=== PATIENT | female | born 1960 | race Caucasian/White ===

== ENCOUNTER 2016-03-18 03:08 | Inpatient (IN) | payer OTHER ==
[~2016-03-18] VITALS: Ht 160 cm; Wt 112.5 kg
[~2016-03-18 03:08] MED LIST: CYMBALTA30 M1 PO; GABAPENTIN300 M2 PO; METHOCARBAMOL500 M1 PO; PREMARIN0.625 M1 PO
--- NOTE | 2016-03-18 09:49 | RADIOLOGY REPORT ---
EXAMINATION: XR LUMBAR SPINE CLINICAL INFORMATION: Intraoperative lateral x-ray for needle placement. COMPARISON: 04/18/2015 MRI. TECHNIQUE: Single intraoperative lateral x-ray of the lumbar spine FINDINGS: There is a needle in the posterior soft tissues of the lumbar spine at the L4 mid vertebral body. Otherwise unremarkable. IMPRESSION: Posterior soft tissue needle located at L4.
--- NOTE | 2016-03-18 10:53 | RADIOLOGY REPORT ---
EXAMINATION: XR LUMBAR SPINE CLINICAL INFORMATION: L4-L5 and L5-S1 fusion in OR. COMPARISON: Lumbar spine film from earlier today. TECHNIQUE: Single lateral view of the lumbar spine labeled #2. FINDINGS: The vertebral bodies and posterior elements are normal in alignment. Surgical marker is seen at the posterior L4-L5 facet joint. Tissue retractors are seen posteriorly in the lower back. IMPRESSION: Localization of the posterior L4-L5 facet joint.
--- NOTE | 2016-03-18 12:54 | Operative Report ---
Operative/Inv Procedure Report Surgery Date: 03/18/16 Name of Procedure: L45, L5-S1 laminectomy for resection synovial cysts, L4 5 bilateral osteotomies, L5-S1 bilateral osteotomies. L4 5 TLIF, L5-S1 TLIF, insertion of L4 5 12 x 28 mm titanium interbody cage, insertion of a 7 x 24 mm interbody cage at L5-S1. Posterior lateral segmental instrumentation L4 through S1 by Aristeo titanium. L4-L5 L5-S1 posterior lateral arthrodesis utilizing autologous bone graft and iliac crest graft aspirate. Procedure performed stereotactically. Pre-Operative Diagnosis: Lumbar spondylosis lumbar spondylolisthesis lumbar stenosis. Post-Operative Diagnosis: Same Estimated Blood Loss: 500cc Surgeon/Box Car Checker: KOBI BRUNO MD and MONSERRAT OSULLIVAN,ALIYAH Salazar Anesthesia: general endotracheal tube Operative/Procedure Note Note: Patient was brought into the operating room and after undergoing endotracheal intubation Lal catheterization Venodyne's were placed over both lower extremities. Patient was placed in the prone position, back was kept flat all bony prominences were well-padded on a Jayjay frame. The back was washed with alcohol and Betadine reprepped again with DuraPrep solution and draped in usual sterile fashion. X-ray was used for localization. An incision was made in the midline approximately 5 inches in length and the L4 vertebra on the S1 and developed down through the underlying subcutaneous tissues. The paraspinal muscles were mobilized out laterally to the level of the transverse process, exposing the L4-L5 transverse process and the ala of the ilium. X-ray was used for confirmation. At this point working with a Misonix bone scalpel. A laminectomy was performed at L4 5 and L5-S1 exposing an underlying synovial cyst which was away and removed away from the dura. Sent off for pathology. Following this resection bilateral osteotomies was now performed with a bone scalpel, coming across the pars on both sides exposing the foramina completely bilaterally. As the nerve roots bilaterally at L4-L5 and S1 were completely freed. Having accomplished this with an 11 blade the disc space was entered at the L4 5 and removed a combination of shaver and curved rongeurs and straight and curved curettes. The cartilaginous endplates were removed and the bony endplates were partially decorticated. The bone that was removed and the patient's back was morcellized and now used for the arthrodesis. Furthermore it was mixed with iliac crest aspirate aspirate which was obtained via a separate skin incision over the iliac crest. After packing the interspace at the L4 5 with autologous bone graft morcellized, a 12 x 28 mm tritanium cage by Aristeo, was now tapped across the midline into the interspace and countersunk. Copious amounts of irrigation were used and now attention was turned to the L5-S1 space. An 11 blade was used to enter the disc space and the space was removed combination of straight and curved rongeurs and straight and curved curettes. This was felt found to be highly collapsed, and the distraction would yield only a subsidence into the vertebra. Because of this point a the disc space was packed with morcellized autologous bone graft and a 7 x 24 mm titanium cage was used to place it into the interspace. At this point point, the posterolateral spine was retracted the transverse processes were decorticated as well as the ileum, and morselized bone was packed between L4 and S1. The stereotactic coordinates were now obtained utilizing the O arm. [place] titanium pedicle screws were now placed at L4 and L5 6.5 mm x 40 mm, and then bilateral screws at S1 35 mm in length 6.5 in width. The screws were titanium. At this point copious amounts of irrigation were used and the screws were stimulated and found to stimulate above 30 mA. 2 rods were used and secured to the polyaxial screws under compression. A large round JUAN JOSÉ was placed and removed a separate stab incision superiorly. Vancomycin powder was brought into the wound . The paraspinal muscles and fascia were reapproximated with interrupted 0 Vicryls. Inverted 2-0 Vicryl subcutaneous teeniest tissues and zack for the skin. The patient was taken extubated to recovery room in entire procedure well.
--- NOTE | 2016-03-18 13:23 | Operative Report ---
Operative/Inv Procedure Report Surgery Date: 03/18/16 Name of Procedure: 1. Bilateral L4, L5 pars osteotomies for deformity correction 2. Total L4, L5 laminectomy, bilateral L4 5, L5-S1 facetectomies 3. Left L4 5, L5-S1 far lateral discectomies 4. L4 5, L5-S1 transforaminal lumbar interbody fusion with titanium interbody cage, autograft 5. Segmental posterior lateral arthrodesis L4-S1 with Aristeo pedicle screws and rods, autograft, iliac crest bone marrow aspirate 6. Use of O arm navigation 7. Resection of L4 5 synovial cyst 8. Right posterior iliac crest bone marrow aspirate Pre-Operative Diagnosis: 1. Dynamic L4 5 spondylolisthesis with stenosis 2. Advanced L5-S1 degenerative disc disease, spondylosis, and severe foraminal stenosis with nerve root impingement Post-Operative Diagnosis: Same Estimated Blood Loss: 500cc Surgeon/Blanket Winder Operator: MONSERRAT OSULLIVAN,Campbell Guzman M.D. Anesthesia: general endotracheal tube Monitors: Neurophysiologic monitoring IV Fluids: 3L crystalloid, 420 mL Cell Saver Implants: [place] Mandi 3 pedicle screws and rods, titanium cage 2 Urine Output: 220 cc Drains: Medium JUAN JOSÉ Specimens: L4 5, L5-S1 disc material Complications: None Condition: Stable Operative Indication: Patient is a 55-year-old woman who presents with intractable left lumbar radiculopathy despite a prolonged course of conservative care. Imaging study identifies advanced facet arthrosis at L4 5 bilaterally with the facet joint cysts, hypertrophic changes, and a dynamic spondylolisthesis resulting in a severe concentric canal stenosis with neural impingement. She is also noted to have advanced L5-S1 degenerative disc disease with severe disc collapse, spondylosis, and severe bilateral foraminal stenosis with impingement of the L5 roots. In light of her failure to respond to nonoperative treatment, she now presents for surgical decompression and instrumented stabilization. Operative/Procedure Note Note: Patient was taken to the operating room. After appropriate patient identification and surgical timeout, the patient underwent the smooth induction of general endotracheal anesthesia without incident. A Lal catheter was sterilely inserted. Neurophysiologic monitoring leads were placed and baseline recordings were obtained. Patient was given 2 g of IV Preoperative Prophylaxis. DVT Prophylaxis Was Utilized throughout the Case. All Tubes and Lines Secured, the Patient Was Carefully turned to the prone position on the Jayjay table taking care to ensure that all pressure points were well-padded. Lumbar region low back was widely prepped and draped using povidone iodine solution. A vertical midline skin incision was marked and infiltrated with local anesthetic from L4 to S1. A small gauge spinal needle was placed superficially and a localizing x-ray was obtained to confirm the level of the planned incision. Skin incision was made with a 10 blade knife. Dissection was carried down through subcutaneous tissue with the Bovie to the lumbodorsal fascia. Fascia was incised in midline and a subperiosteal dissection of the lumbar paravertebral muscles performed bilaterally exposing spinous process, lamina, and facet joints. The joints of L4 5 were noted to be massively hypertrophic bilaterally. A [place] was placed on the presumed L4 lamina and intraoperative x- ray was obtained and confirmed the correct levels. The transverse processes of L4-L5 and the sacral alar were cleared of overlying soft tissue bilaterally and decorticated with a high-speed drill. With the levels confirmed, we then proceeded with a total laminectomy of L4-L5 to the top of the sacrum. Bilateral pars osteotomies of L4 and L5 were performed bilaterally using a combination of the bone scalpel and Kerrison rongeurs. Total facetectomies at L4 5 and L5-S1 were completed bilaterally. Patient was noted to have synovial cysts associated with her L4 5 facet joints which were resected carefully and passed off as specimen. All bone was saved for subsequent arthrodesis. The pedicles of L4, L5, and S1 were skeletonized bilaterally. A thickened underlying ligamentum flavum was gently elevated and sequentially resected with the Kerrison rongeurs allowing an excellent decompression of the underlying thecal sac as well as the exiting and traversing roots from L4 to S1. We then proceeded to the interbody decompression and arthrodesis. The thecal sac was gently protected under a [place] hand-held retractor. Working from the patient's more symptomatic left side and beginning at L4 5, a cuff of venous epidural tissue overlying the disc annulus was coagulated with a bipolar and divided with a micro-scissor. The annulus was coagulated with the bipolar and an annulotomy performed with an 11 blade knife. Discectomy was completed with the disc space jj and rasps until all of the cartilaginous endplates were removed. With the disc space appropriately prepared, it was irrigated. After appropriate trials, a 12 x 28 x 11 x 6 lordotic titanium cage was selected. Morcellated autograft from the decompression was packed into the anterior L4 5 disc space. The cage was then gently tamped into the interspace under direct visualization and countersunk by several millimeters and its final position visually confirmed and noted to be excellent. Monitoring was stable. We next focused our attention to L5-S1. In an analogous fashion, and with the neural elements protected, a annulotomy was performed on the left and discectomy completed with disc space jj and rasps until all the disc material and cartilaginous endplate was removed. After appropriate trials, a 7 x 23 x 11 x 6 significantly collapsed at this level. Morcellated autograft was packed into the anterior L5-S1 disc space followed by the cage which was gently tamped into the interspace under direct visualization and countersunk. With the cages in position, we then proceeded to the posterior lateral arthrodesis. 15 mL of right posterior iliac crest bone marrow aspirate was harvested a with a Jamshidi needle and added to the morcellated autograft. The bone was then packed over the transverse processes from L4 to the sacral alar bilaterally. With the bone in position, the O arm reference arc was then placed into the right posterior iliac crest. The O arm was brought into play. Reference AP and lateral x-rays were obtained followed by a spin of the O arm. sagittal and coronal reconstructions were obtained and the acquisition was confirmed. Using O arm navigation, entry points for pedicle screws at L4, L5, S1 was selected bilaterally at the junction of the pars, transverse process, and inferomedial aspect of the rostral facet. Entry points were marked with the drill. Pedicles were traversed with a gearshift. Holes were sounded, tapped, sounded again and screws placed under direct and O arm navigation. At L4 and L5 , 6.5 x 40 mm Aristeo Mandi 3 pedicle screws were placed bilaterally. At S1, 6.5 x 35 mm pedicle screws were placed bilaterally without complication. Once all screws were in place, they were stimulated with thresholds greater than 30 mA at all locations. With the instrumentation in place, a second spin of the O arm was undertaken and we confirmed excellent position of all of our hardware. 60 mm rods were then top loaded and locking caps placed bilaterally. The screws were finally tightened with an antitorque device at all 6 locations. The wound was copiously irrigated with sterile normal saline. Meticulous hemostasis is achieved using combination of bipolar and of thrombin-soaked Gelfoam patties and the epidural space. Using a [place], we confirmed the wide decompression of the L4 5 and L5-S1 neural foramen bilaterally and excellent decompression of the exiting roots. The central canal was quite coryza completely decompressed and the dural sac well-expanded. 1 g of IV vancomycin powder was used to coat all of the cut across surfaces. 20 mL of long-acting local was instilled in the paravertebral muscle for postoperative analgesia and we began wound closure. A medium JUAN JOSÉ drain was placed into the wound and secured to the skin with a 2-0 nylon suture. Deep muscle was reapproximated with interrupted 0 Vicryl suture. Lumbodorsal fascia was reapproximated with interrupted 0 Vicryl suture. Superficial wound was copiously irrigated and closed in layers with interrupted 20 and 3-0 Vicryl suture and the skin was closed with zack. The wounds clean and dried. Bacitracin and a sterile occlusive dressing was placed. The small stab incision of the right posterior hip was also closed with interrupted 3-0 Vicryl suture in the dermis and zack. A sterile small dressing was placed. The patient was then carefully returned to the supine position, awakened extubated and taken to PACU in stable condition. She was noted to be moving all 4 extremities at the completion of the case. All sponge, needle, and instrument counts were correct at the completion of the procedure 3. Neurophysiologic monitoring was stable throughout the case.
[2016-03-18 15:00] VITALS: BP 110/68
--- NOTE | 2016-03-18 15:28 | PN- Neurosurgical ---
Subjective Subjective: Post Op Note s/p lumbar laminectomy Patient without c/o. States she has no pain at the moment. She had left leg numbness/parasthesia pre op but none at the moment. Denies n/v Denies CP/SOB. Objective Vital Signs and I&Os AVSS Physical Exam: Gen: NAD, comfortable, A&Ox3 Chest: NRD, breathing comfortably on RA. RRR. Back: Dressing c/d/i. JUAN JOSÉ drain with sanguinous drainage Ext: No calve TTP/Swelling. N/V intact BLE. Current Medications: Current Medications Sig/Armani Start time Last Medication Dose Route Stop Time Status Admin Acetaminophen 650 MG Q4P PRN 03/18 1415 AC PO Acetaminophen 1,000 MG .STK-MED ONE 03/18 717 DC IV 03/18 07 Bisacodyl 10 MG DAILY NEEDED PRN 03/18 141 AC GA Dexamethasone 8 MG .STK-MED ONE 03/18 07 DC IM 03/18 0720 Diazepam 5 MG Q8P PRN 03/18 1415 AC PO Docusate Sodium 100 MG TID 03/18 1600 AC PO Duloxetine HCl 30 MG QPM 03/18 2200 UNVr PO Estrogens Conjugated 0.625 MG QPM 03/18 2200 UNVr PO Fentanyl Citrate 500 MCG .STK-MED ONE 03/18 717 DC IM 03/18 07 Heparin Sodium 5,000 UNIT Q8 03/19 0600 AC (Porcine) SC Hydromorphone HCl 2 MG Q4-6 PRN PRN 03/18 1430 AC PO Hydromorphone HCl 1 MG Q4-6 PRN PRN 03/18 1430 AC IV Hydromorphone HCl 2 MG Q4-6 PRN PRN 03/18 1430 AC IV Hydromorphone HCl 50 MG Q24H PRN 03/18 1330 AC Sodium Chloride 45 ML IV Ketorolac 30 MG Q6P PRN 03/18 1415 AC Tromethamine IV 03/23 1414 Midazolam HCl 2 MG .STK-MED ONE 03/18 07 DC IM 03/18 0719 Ondansetron HCl 4 MG Q6P PRN 03/18 1415 AC IV Oxycodone/ 2 TAB Q4P PRN 03/18 1415 AC Acetaminophen PO Remifentanil 5 MG .STK-MED ONE 03/18 0718 DC IV 03/18 0719 Senna 374 MG QPM PRN 03/18 1415 AC PO Sodium Chloride 1,000 ML Q10H 03/18 1415 AC IV 03/19 1014 Trimethobenzamide HCl 200 MG Q6P PRN 03/18 1415 AC IM Zolpidem Tartrate 2.5 MG AT BEDTIME NEED.. 03/18 1430 AC PO Assessment/Plan Assessment/Plan 55yo F POD#1 s/p lum chaudhry. Patient doing well post operatively. - Pain control with d-last picker - continue IVF. DC once tolerating diet - OOB with brace - I/O's - PRN zofran - JUAN JOSÉ drain to bulb suction - abx while JUAN JOSÉ in place - home meds - alps - sc hep in am Core Measures/Miscellaneous Venous Thromboembolism VTE Risk Factors: Age > 40, Surgery VTE Contraindications: Active Bleeding VTE Prophylaxis Ordered Inpt: Mechanical (ALPS/TEDS) VTE Diagnosis: No Beta Brii Is Beta Brii a Home Med? No Antibiotics Is Patient on Antibiotics? Yes If Yes: prophylaxis
--- NOTE | 2016-03-18 17:12 | RADIOLOGY REPORT ---
EXAMINATION: XR LUMBOSACRAL SPINE CLINICAL INFORMATION: L4-L5 and L5-S1 fusion in OR. COMPARISON: Lumbar spine films from earlier today. TECHNIQUE: Fluoroscopic equipment was dedicated to the operating room for the performance of a lower lumbar spine fusion. A few coned-down frontal views of the lumbosacral junction were obtained and CT images of the lower lumbar spine were performed. FLUOROSCOPY TIME: 10.27 seconds. FINDINGS: Images demonstrate laminectomy and fusion of the L4-L5 and L5-S1 levels with transpedicular screws and intervertebral disc spacers seen in place. Alignment on the images available appears anatomic. IMPRESSION: L4-L5 and L5-S1 decompression and fusion.
[2016-03-18 18:35] VITALS: BP 142/82
[2016-03-18 20:33] VITALS: BP 120/70
[2016-03-19] VITALS (7 sets, daily range): BP systolic 110–147; BP diastolic 52–82
--- NOTE | 2016-03-19 07:49 | PN- Neurosurgical ---
Subjective Subjective: Pt doing well. Reports mild tingling bilat LE to feet. No other complaints. Objective Vital Signs and I&Os Vital Signs Date Time Temp Pulse Resp B/P Pulse O2 O2 Flow FiO2 Ox Delivery Rate 03/19 0313 97.8 89 20 134/70 95 Room Air 03/19 0002 98.1 83 20 110/66 90 Room Air 03/18 2033 98.4 111 20 120/70 93 03/18 1922 Room Air Room Air 03/18 1835 97.9 103 20 142/82 96 03/18 1500 98.6 88 18 110/68 97 Room Air Room Air Intake & Output 03/19 0800 03/19 0000 03/18 1600 03/18 0803/18 0000 03/17 1600 Intake Total 1250 1805 125 Output Total 1900 500 70 Balance -650 1305 55 Intake, IV 800 875 125 Intake, Oral 450 930 Number 0 Bowel Movements Output, 100 150 70 Drainage Output, Urine 1800 350 Patient 112.491 kg Weight Physical Exam: AF, VSS awake and alert neuro exam with normal strength and sensation bilat LE ambulating on own to BR this am bailey out and voiding on own mary lou po no LE edema, abd soft incision is c,d,i drain in place Current Medications: Current Medications Sig/Armani Start time Last Medication Dose Route Stop Time Status Admin Acetaminophen 650 MG Q4P PRN 03/18 1415 AC PO Bisacodyl 10 MG DAILY NEEDED PRN 03/18 1415 AC MO Diazepam 5 MG Q8P PRN 03/18 1415 AC PO Docusate Sodium 100 MG TID 03/18 1600 AC 03/18 PO 213 Duloxetine HCl 30 MG QPM 03/18 2200 AC 03/18 PO 2133 Estrogens Conjugated 0.625 MG QPM 03/18 2200 AC 03/18 PO 2133 Heparin Sodium 5,000 UNIT Q8 03/19 0600 AC 03/19 (Porcine) SC 0553 Hydromorphone HCl 2 MG Q4-6 PRN PRN 03/18 1430 AC PO Hydromorphone HCl 1 MG Q4-6 PRN PRN 03/18 1430 AC IV Hydromorphone HCl 2 MG Q4-6 PRN PRN 03/18 1430 AC IV Hydromorphone HCl 50 MG Q24H PRN 03/18 1330 AC Sodium Chloride 45 ML IV Ketorolac 30 MG Q6P PRN 03/18 1415 AC Tromethamine IV 03/23 1414 Ondansetron HCl 4 MG Q6P PRN 03/18 1415 AC 03/18 IV 2133 Oxycodone/ 2 TAB Q4P PRN 03/18 1415 AC Acetaminophen PO Senna 374 MG QPM PRN 03/18 1415 AC PO Sodium Chloride 1,000 ML Q10H 03/18 1415 AC 03/18 IV 03/19 1014 1450 Trimethobenzamide HCl 200 MG Q6P PRN 03/18 1415 AC IM Zolpidem Tartrate 2.5 MG AT BEDTIME NEED.. 03/18 1430 AC PO Assessment/Plan Assessment/Plan Pt POD1 s/p L4-S1 decompression and fusion and doing well. Plan: -cont JUAN JOSÉ until less than 50cc per shift, abx until drain out -OOB with brace -ADAT -dc DEPUTY REGISTER OF DEEDS, oral meds + toradol prn -DVT prophylaxis with subq hep today -encourage IS use Core Measures/Miscellaneous Venous Thromboembolism VTE Risk Factors: Age > 40, Surgery VTE Contraindications: Active Bleeding VTE Prophylaxis Ordered Inpt: Mechanical (ALPS/TEDS) VTE Diagnosis: No Beta Brii Is Beta Brii a Home Med? No Antibiotics Is Patient on Antibiotics? Yes If Yes: prophylaxis Attending MD Review Statement Attending Statement Attending MD Statement: examined this patient, discuss w/resident/PA/DREDGE ENGINEER, discussed w/nursing
[2016-03-19 08:17] LABS: ABSOLUTE BASOPHIL COUNT 0 /CUMM (0.0-0.2); ABSOLUTE EOSINOPHIL COUNT 0 /CUMM (0.0-0.7); ABSOLUTE GRANULOCYTE CT 9.3 /CUMM (1.4-6.5); ABSOLUTE LYMPH COUNT 1.4 /CUMM (1.2-3.4); ABSOLUTE MONOCYTE COUNT 0.9 /CUMM (0.10-0.60); BASOPHIL % 0.2 % (0.0-2.0); EOSINOPHIL % 0.1 % (0-5); GRANULOCYTE % 79.9 % (42.2-75.2); HEMATOCRIT 33.5 % (37-47); MEAN CORPUSCULAR HGB 30.6 PG (27.0-31.0); MEAN CORPUSCULAR HGB CONC 34.1 G/DL (33.0-37.0); MEAN CORPUSCULAR VOLUME 89.8 FL (81.0-99.0); MEAN PLATELET VOLUME 9.5 FL (7.4-10.4); PLATELET COUNT 229 /CUMM (130-400); RED BLOOD CELL CT 3.74 /CUMM (4.20-5.40); WHITE BLOOD CELL COUNT 11.6 /CUMM (4.8-10.8)
--- NOTE | 2016-03-19 16:56 | Patient Discharge Instructions ---
Discharge Instructions General Discharge Information You were seen/treated for: LOW BACK PAIN WITH RADICULOPATHY You had these procedures: LUMBAR LAMINECTOMY WITH INTERVERTEBRAL BODY FUSION Watch for these problems: INCREASING PAIN, REDNESS, WARMTH, SWELLING. DRAINAGE OF ANY TYPE FROM INCISION. INABILITY TO BEAR WEIGHT ON BILATERAL LOWER EXTREMITIES. INCREASING NUMBNESS OR TINGLING TO BILATERAL LOWER EXTREMITIES. FEVER GREATER THAN 101.5 Do not soak the wound: Yes No bath, but you may shower: Yes Other wound care: KEEP WOUND CLEAN AND DRY Diet Continue normal diet: Yes Recommended Diet: Regular Additional DIET Information: ADVANCE TOLERATED Activity Full Activity/No Limits: No Activity Self Limited: Yes Pounds, do NOT lift more than: 5 Other activity limits: NO BENDING OR TWISTING AT WAIST Additional ACTIVITY Info: MUST WEAR BRACE WHEN OUT OF BED Acute Coronary Syndrome Inclusion Criteria At DC or during hospital stay patient has or had the following: ACS DIAGNOSIS No Discharge Core Measures Meds if any: Prescribed or Continued at Discharge Meds if any: NOT Prescribed or Continued at Discharge Congestive Heart Failure Inclusion Criteria At DC or during hospital stay patient has or had the following: CHF DIAGNOSIS No Discharge Core Measures Meds if any: Prescribed or Continued at Discharge Meds if any: NOT Prescribed or Continued at Discharge Cerebrovascular accident Inclusion Criteria At DC or during hospital stay patient has or had the following: CVA/TIA Diagnosis No Discharge Core Measures Meds if any: Prescribed or Continued at Discharge Meds if any: NOT Prescribed or Continued at Discharge Venous thromboembolism Inclusion Criteria VTE Diagnosis No VTE Type NONE VTE Confirmed by (Test) NONE Discharge Core Measures - Per Current guidelines, there needs to be overlap - treatment for the first 5 days of Warfarin therapy. - If discharged on Warfarin prior to 5 days of - overlap therapy, the patient will need to be - assessed for post discharge needs including - *Post discharge parental anticoagulation - *Warfarin and/or parental anticoagulation education - *Follow up date to check INR post discharge At least 5 days overlap therapy as Inpatient No Meds if any: Prescribed or Continued at Discharge Note: Overlap Therapy is Warfarin and Anticoagulant Meds if any: NOT Prescribed or Continued at Discharge
--- NOTE | 2016-03-19 17:01 | Surgical Discharge Summary ---
See Addendum Visit Information Visit Dates Admission Date: 03/18/16 Discharge Date: 03/20/16 History of Present Illness Chief Complaint: Low back pain, radiculopathy Medical History Blood Transfusion Hx: No Neurological: NONE EENT: NONE Cardiovascular: NONE Respiratory: NONE Gastrointestinal: NONE Hepatic: NONE Renal: NONE Musculoskeletal: NONE Psychiatric: depression Endocrine: NONE Blood Disorders: NONE Cancer(s): NONE RN ADMIT/Reproductive: NONE History of MRSA: No History of VRE: No History of CDIFF: No Isolation History: Standard Surgical History Pertinent Surgical History: hysterectomy, LAP BAND Psychosocial History Where Do You Live? Home Who Do You Live With? Spouse Services at Home: None What is Your Primary Language? Korean Review of Systems: See H&P Hospital Course Course Attending Physician: MONSERRAT OSULLIVAN,ALIYAH Salazar Primary Care Physician: MAICOL OSULLIVAN,KOBI Linares [facility] Course: Patient was admitted to the hospital on 03/18/2016 for lumbar laminectomy with intervertebral body fusion. She tolerated the procedure well. She was transferred to a general surgical floor. Her diet was advanced and tolerated. She voided spontaneously. Her pain was well controlled. Her vital signs were stable and within normal limits. She was evaluated and treated by physical therapy. Her JUAN JOSÉ drain was removed on POD #2 and her antibiotics were stopped. She was deemed appropriate for discharge to home with outpatient follow up with Dr. Horta. She will be discharged on Dilaudid PO and Ativan at bedtime as needed to help her sleep per Dr. Horta. Allergies: Coded Allergies: NO KNOWN ALLERGIES (03/15/16) Disposition Summary Disposition Principal Diagnosis: Lumbar spondylolisthesis with stenosis, degenerative disc disease lumbar spine Additional Diagnosis: none Discharge Disposition: home or self care Discharge Instructions General Discharge Information Code Status: Full Code Patient's Diet: Regular, advance as tolerated Patient's Activity: Weight bear as tolerated on bilateral lower extremities. Wear brace when out of bed until otherwise indicated by Dr. Horta Follow-Up Instructions/Appts: Please contact Dr. Horta's office to arrange/confirm follow up appointment. She would like for you to be seen in 2 weeks from date of surgery Medications at Discharge Discharge Medications: Continue taking these medications: Duloxetine Hydrochloride (Cymbalta) 30 MG CAPSULE. 1 Capsule ORAL Every night Comments: DOCUMENTED PER CMR DURING PRE-SX INTERVIEW Estrogenic Subst Conj (Premarin) 0.625 MG TABLET 1 Tablet ORAL Every night Comments: DOCUMENTED PER CMR DURING PRE-SX INTERVIEW Gabapentin (Gabapentin) 300 MG CAPSULE 1 Capsule ORAL Every night Comments: DOCUMENTED PER CMR DURING PRE-SX INTERVIEW Methocarbamol (Methocarbamol) 500 MG TABLET 1 Tablet ORAL Every night Comments: DOCUMENTED PER CMR DURING PRE-SX INTERVIEW Azilsartan Medoxomil (Edarbi) 40 MG TABLET 1 Tablet ORAL DAILY Start taking the following new medications: Hydromorphone HCl (Hydromorphone HCl) 2 MG TABLET 2 Milligram ORAL EVERY 4-6 HOURS NEEDED as needed for PAIN Qty = 36 No Refills Zolpidem Tartrate (Zolpidem Tartrate) 5 MG TABLET 0.5 Tablet ORAL AT BEDTIME NEEDED as needed for SLEEP Qty = 5 No Refills Docusate Sodium (Docusate Sodium) 100 MG CAPSULE 100 Milligram ORAL TWICE DAILY as needed for CONSTIPATION Qty = 30 No Refills
[2016-03-19] MEDS ORDERED: EDARBI40 M1 PO (21:03)
[2016-03-20 01:04] VITALS: BP 144/80
[2016-03-20 05:30] VITALS: BP 138/66
[2016-03-20 07:32] VITALS: BP 112/70
--- NOTE | 2016-03-20 08:29 | PN- Neurosurgical ---
Subjective Subjective: Pt feeling well. Slept great last night Objective Vital Signs and I&Os Vital Signs Date Time Temp Pulse Resp B/P Pulse O2 O2 Flow FiO2 Ox Delivery Rate 03/20 0732 98.7 112 18 112/70 92 Room Air 03/20 0530 98.5 95 20 138/66 95 03/20 0104 98.0 95 20 144/80 91 03/19 2359 97.7 61 20 122/52 97 03/19 2109 99.2 100 20 139/80 92 Room Air 03/19 1625 97.7 104 18 142/82 93 Room Air 03/19 1121 97.3 90 20 147/75 95 Room Air Intake & Output 03/20 1600 03/20 0800 03/20 0000 03/19 1600 03/19 0800 03/19 0000 Intake Total 390 1560 1710 1250 1930 Output Total 55 1710 1010 1900 570 Balance 335 -150 700 -650 1360 Intake, IV 150 527 734 1598 Intake, Oral 240 1560 960 450 930 Number 2 0 Bowel Movements Output, 55 110 110 100 220 Drainage Output, Urine 9538 020 3718 350 Physical Exam: Pt AF, VSS neuro intact incision c,d,i flat serosanguinous dc in JUAN JOSÉ 55cc last shift ambulating, mary lou po, voiding on own pain controlled Current Medications: Current Medications Sig/Armani Start time Last Medication Dose Route Stop Time Status Admin Acetaminophen 650 MG Q4P PRN 03/18 1415 AC PO Bisacodyl 10 MG DAILY NEEDED PRN 03/18 1415 AC IN Cefazolin Sodium 2 GM IQ8 03/19 0800 DC 03/20 N/A 1 UNIT IV 03/20 0759 0010 Diazepam 5 MG Q8P PRN 03/18 1415 AC 03/19 PO 2310 Docusate Sodium 100 MG TID 03/18 1600 AC 03/19 PO 2227 Duloxetine HCl 30 MG QPM 03/18 2200 AC 03/19 PO 2227 Estrogens Conjugated 0.625 MG QPM 03/18 2200 AC 03/19 PO 2227 Gabapentin 300 MG QPM 03/19 2200 AC 03/19 PO 2227 Heparin Sodium 5,000 UNIT Q8 03/19 0600 AC 03/20 (Porcine) SC 0618 Hydromorphone HCl 2 MG Q4-6 PRN PRN 03/18 1430 AC PO Hydromorphone HCl 1 MG Q4-6 PRN PRN 03/18 1430 AC IV Hydromorphone HCl 2 MG Q4-6 PRN PRN 03/18 1430 AC IV Ketorolac 30 MG Q6P PRN 03/18 1415 AC 03/20 Tromethamine IV 03/23 1414 0010 Losartan Potassium 25 MG DAILY 03/20 1000 AC PO Ondansetron HCl 4 MG Q6P PRN 03/18 1415 AC 03/18 IV 2133 Oxycodone/ 2 TAB Q4P PRN 03/18 1415 AC Acetaminophen PO Patient Medication 1 ED .STK-MED ONE 03/19 1333 DC Teaching ED 03/19 1334 Senna 374 MG QPM PRN 03/18 1415 AC PO Sodium Chloride 1,000 ML Q10H 03/18 1415 DC 03/18 IV 03/19 1014 1450 Trimethobenzamide HCl 200 MG Q6P PRN 03/18 1415 AC IM Zolpidem Tartrate 2.5 MG AT BEDTIME NEED.. 03/18 1430 AC 03/19 PO 2227 Results Last 48 Hours of Labs: Laboratory Tests 03/19 0730 Hematology CBC w Diff NO MAN DIFF REQ WBC (4.8 - 10.8 /CUMM) 11.6 H RBC (4.20 - 5.40 /CUMM) 3.74 L Hgb (12.0 - 16.0 G/DL) 11.4 L Hct (37 - 47 %) 33.5 L MCV (81.0 - 99.0 FL) 89.8 MCH (27.0 - 31.0 PG) 30.6 RDW (11.5 - 14.5 %) 13.0 Plt Count (130 - 400 /CUMM) 229 MPV (7.4 - 10.4 FL) 9.5 Gran % (42.2 - 75.2 %) 79.9 H Lymphocytes % (20.5 - 51.1 %) 12.0 L Monocytes % (1.7 - 9.3 %) 7.8 Eosinophils % (0 - 5 %) 0.1 Basophils % (0.0 - 2.0 %) 0.2 Absolute Granulocytes (1.4 - 6.5 /CUMM) 9.3 H Absolute Lymphocytes (1.2 - 3.4 /CUMM) 1.4 Absolute Monocytes (0.10 - 0.60 /CUMM) 0.9 H Absolute Eosinophils (0.0 - 0.7 /CUMM) 0 Absolute Basophils (0.0 - 0.2 /CUMM) 0 PUBS MCHC (33.0 - 37.0 G/DL) 34.1 Assessment/Plan Assessment/Plan Pt POD2 s/p lumbar lami and fusin L4-S1 and doing well. Plan: -dc JUAN JOSÉ, abx -home today -fu with me 2 weeks -dc instructions given -brace when OOB Core Measures/Miscellaneous Venous Thromboembolism VTE Risk Factors: Age > 40, Surgery VTE Contraindications: Active Bleeding VTE Prophylaxis Ordered Inpt: Mechanical (ALPS/TEDS) VTE Diagnosis: No Beta Brii Is Beta Brii a Home Med? No Antibiotics Is Patient on Antibiotics? Yes If Yes: prophylaxis Attending MD Review Statement Attending Statement Attending MD Statement: examined this patient, discuss w/resident/PA/ACCOUNTING INSTRUCTOR
[2016-03-20 09:19] VITALS: BP 112/70
[2016-03-20] MEDS ORDERED: HYDROMORPHONE HC2 M1 PO (09:20)
[2016-03-20] MEDS ORDERED: DOCUSATE SODIU100 M3 PO (09:20)
[2016-03-20] MEDS ORDERED: ZOLPIDEM TARTRAT5 M1 PO (09:20)
== END 2016-03-20 11:10 | DRG 460 ==
LOC: ENRESERVTM → ENRESERVDT → 2NB 03:08 → ENPENDDIS 03:08 → SDA 03:08 → 2NB 14:30
PROVIDERS: ADMIT Neurological Surgery
PROC: 0SG3071 Fusion of Lumbosacral Joint with Autologous Tissue Substitute, Posterior Approach, Posterior Column, Open Approach (ICD-10-PCS; principal; 2016-03-18)
PROC: 0SG30AJ Fusion of Lumbosacral Joint with Interbody Fusion Device, Posterior Approach, Anterior Column, Open Approach (ICD-10-PCS; principal; 2016-03-18)
PROC: 0SG0071 Fusion of Lumbar Vertebral Joint with Autologous Tissue Substitute, Posterior Approach, Posterior Column, Open Approach (ICD-10-PCS; principal; 2016-03-18)
PROC: 0SB40ZZ Excision of Lumbosacral Disc, Open Approach (ICD-10-PCS; principal; 2016-03-18)
PROC: 00BT0ZZ Excision of Spinal Meninges, Open Approach (ICD-10-PCS; principal; 2016-03-18)
PROC: 0SG00AJ Fusion of Lumbar Vertebral Joint with Interbody Fusion Device, Posterior Approach, Anterior Column, Open Approach (ICD-10-PCS; principal; 2016-03-18)
PROC: 0SB20ZZ Excision of Lumbar Vertebral Disc, Open Approach (ICD-10-PCS; principal; 2016-03-18)
PROC: 4A11X4G Monitoring of Peripheral Nervous Electrical Activity, Intraoperative, External Approach (ICD-10-PCS; principal; 2016-03-18)
PROC: 0QB20ZZ Excision of Right Pelvic Bone, Open Approach (ICD-10-PCS; principal; 2016-03-18)
DX: M43.16 Spondylolisthesis, lumbar region (principal); G96.19 Other disorders of meninges, not elsewhere classified; I10 Essential (primary) hypertension; M47.26 Other spondylosis with radiculopathy, lumbar region; M48.06 Spinal stenosis, lumbar region; M43.17 Spondylolisthesis, lumbosacral region; M48.07 Spinal stenosis, lumbosacral region; M47.27 Other spondylosis with radiculopathy, lumbosacral region; M51.17 Intervertebral disc disorders with radiculopathy, lumbosacral region
CPT/HCPCS: 2NBSP; 72020; 72100; 87086; 88304; C9290; J0131; J0690; J1100; J1170; J1644; J1885; J2405; J3250; J3370